=== PATIENT | female | born 1960 | race African-American/Black ===

== ENCOUNTER 2018-05-12 09:37 | Outpatient (CLI) | payer MEDICARE, MEDICAID | END 2018-05-12 09:38 | disposition home or self-care (01) | LOC: BICMAMMO 09:37 | PROVIDERS: ATTEND Nurse Practitioner Family | DX: Z12.31 Encounter for screening mammogram for malignant neoplasm of breast (principal); Z78.0 Asymptomatic menopausal state; M19.90 Unspecified osteoarthritis, unspecified site; E55.9 Vitamin D deficiency, unspecified | CPT/HCPCS: 77063; 77067; 77080 ==

== ENCOUNTER 2019-09-08 10:24 | Outpatient (CLI) | payer MEDICARE, MEDICAID ==
--- NOTE | 2019-09-08 11:21 | MMO ---
Bilateral MAMMO Bilat Screen [facility]. CLINICAL HISTORY: Patient is 58 years old and is seen for screening. The patient has no family history of breast cancer. The patient has no personal history of cancer. The patient has a history of right Excisional Biopsy - benign. VIEWS: The views performed were: bilateral craniocaudal with tomosynthesis and bilateral mediolateral oblique with tomosynthesis. FILMS COMPARED: The present examination has been compared to prior imaging studies performed at [facility] on 12/11/2011, 12/27/2015, 01/14/2017 and 05/12/2018. This study has been interpreted with the assistance of computer-aided detection. MAMMOGRAM FINDINGS: There are scattered fibroglandular densities. There are stable benign appearing calcifications seen in both breasts. There are no suspicious masses, calcifications or areas of architectural distortion. There are no suspicious masses, suspicious calcifications, or new areas of architectural distortion. IMPRESSION: THERE IS NO MAMMOGRAPHIC EVIDENCE OF MALIGNANCY. A ROUTINE FOLLOW-UP MAMMOGRAM IN 1 YEAR IS RECOMMENDED. THE RESULTS OF THIS EXAM WERE SENT TO THE PATIENT. ACR BI-RADS Category 2 - Benign finding MAMMOGRAPHY NOTE: 1. A negative mammogram report should not delay a biopsy if a dominant of clinically suspicious mass is present. 2. Approximately 10% to 15% of breast cancers are not detected by mammography. 3. Adenosis and dense breasts may obscure an underlying neoplasm. Reported by: BUFFY MEDINA MD Electonically Signed: [id number]
== END 2019-09-08 10:25 | disposition home or self-care (01) ==
LOC: BICMAMMO 10:24
PROVIDERS: ATTEND Nurse Practitioner Family
DX: Z12.31 Encounter for screening mammogram for malignant neoplasm of breast (principal); Z91.89 Other specified personal risk factors, not elsewhere classified
CPT/HCPCS: 77063; 77067

== ENCOUNTER 2019-11-16 10:31 | Outpatient (CLI) | payer MEDICARE, MEDICAID ==
--- NOTE | 2019-11-16 12:13 | MRI ---
MR the lumbar spine without contrast INDICATION: History of lumbar radiculopathy COMPARISON: None. TECHNIQUE: Multiplanar multisequence MR images were obtained of lumbar spine without IV contrast. FINDINGS: Bone marrow: Bone marrow signal intensity appears within normal limits. Distal spinal cord and conus: Normal. The conus seen to terminate at L1. Visualized retroperitoneum and paraspinal soft tissues: Partial visualization of the patient's known left superior pole renal cyst. The cyst measures up to 4.1 cm. Additional smaller exophytic cysts are seen off the lateral margin of the left kidney. No lymphadenopathy is evident. Vertebral levels: L5-S1: There is a mild broad-based disc bulge and mild facet joint degenerative change but no appreci able central canal or neural foraminal narrowing.. L4-5: There is a broad-based disc bulge with facet hypertrophy inducing mild central canal narrowing with mild left and moderate right subarticular lateral recess narrowing. The broad-based disc bulge and facet hypertrophy has for potential for impingement of the traversing right L5 nerve root. This i s best seen on image 28 of series 7 and image 13 of series 5. The broad-based disc bulge and facet hypertrophy is induces mild right neural foraminal narrowing. L3-4: There is a broad-based bulge with facet hypertrophy but no appreciable central canal or neural foraminal narrowing. L2-3: There is a broad-based bulge without appreciable central canal or neural foraminal narrowing. L1-L2: No appreciable central canal or neuroforaminal narrowing. T12-L1: No appreciable central canal or neuroforaminal narrowing. IMPRESSION: 1. Moderate spondylosis of the lumbar spine most pronounced at L4-5. There is a broad-based disc bulg e with facet hypertrophy inducing mild central canal narrowing with moderate right subarticular lateral recess narrowing. Within the right lateral recess the broad-based bulge and facet hypertrophy has potential for impingement of the traversing right L5 nerve root. Would recommend correlation with the clinical exam. 2. Left renal cysts better detailed on a CT urogram dated June 17, 2016.
== END 2019-11-16 10:32 | disposition home or self-care (01) ==
LOC: BICMRI 10:31
PROVIDERS: ATTEND Orthopaedic Surgery
DX: M47.26 Other spondylosis with radiculopathy, lumbar region (principal); M51.16 Intervertebral disc disorders with radiculopathy, lumbar region; M53.3 Sacrococcygeal disorders, not elsewhere classified; M48.061 Spinal stenosis, lumbar region without neurogenic claudication; N28.1 Cyst of kidney, acquired
CPT/HCPCS: 72148

== ENCOUNTER 2021-07-17 09:57 | Outpatient (CLI) | payer MEDICARE, MEDICAID | END 2021-07-17 09:58 | disposition home or self-care (01) | LOC: BICMAMMO 09:57 | PROVIDERS: ATTEND Nurse Practitioner Family | DX: Z12.31 Encounter for screening mammogram for malignant neoplasm of breast (principal); Z13.820 Encounter for screening for osteoporosis; M85.89 Other specified disorders of bone density and structure, multiple sites; N64.89 Other specified disorders of breast | CPT/HCPCS: 77063; 77067; 77080 ==

== ENCOUNTER 2021-07-31 08:46 | Outpatient (CLI) | payer MEDICARE, MEDICAID | END 2021-07-31 08:47 | disposition home or self-care (01) | LOC: BICULT 08:46 | PROVIDERS: ATTEND Nurse Practitioner Family | DX: R92.2 Inconclusive mammogram (principal) | CPT/HCPCS: 76642; 77065; G0279 ==

== ENCOUNTER 2022-03-09 14:07 | Emergency (ER) | payer MEDICARE, MEDICAID ==
[2022-03-09] MEDS ORDERED: Ketorolac Tromethamine 30 MG/ML VIAL ONE (16:00)
== END 2022-03-09 16:09 | disposition home or self-care (01) ==
LOC: ERS 14:07
DX: M79.652 Pain in left thigh (principal); K21.9 Gastro-esophageal reflux disease without esophagitis; I10 Essential (primary) hypertension; W19.XXXA Unspecified fall, initial encounter
CPT/HCPCS: 96372; J1885

== ENCOUNTER 2022-03-15 16:53 | Emergency (ER) | payer MEDICARE, MEDICAID ==
[2022-03-15] MEDS ORDERED: traMADol HCl 50 MG TAB ONE (18:10)
== END 2022-03-15 19:31 | disposition home or self-care (01) ==
LOC: ERS 16:53
DX: S70.02XA Contusion of left hip, initial encounter (principal); I10 Essential (primary) hypertension; K21.9 Gastro-esophageal reflux disease without esophagitis; W19.XXXA Unspecified fall, initial encounter
CPT/HCPCS: 72192

== ENCOUNTER 2024-05-05 11:27 | Outpatient (CLI) | payer OTHER, MEDICAID | END 2024-05-05 11:28 | disposition home or self-care (01) | LOC: BICMAMMO 11:27 | PROVIDERS: ATTEND Nurse Practitioner Family | DX: Z12.31 Encounter for screening mammogram for malignant neoplasm of breast (principal); N64.89 Other specified disorders of breast; Z91.89 Other specified personal risk factors, not elsewhere classified | CPT/HCPCS: 77063; 77067 ==

== ENCOUNTER 2024-05-16 08:12 | Outpatient (CLI) | payer OTHER, MEDICAID | END 2024-05-16 08:13 | disposition home or self-care (01) | LOC: BICMAMMO 08:12 | PROVIDERS: ATTEND Nurse Practitioner Family | DX: N64.89 Other specified disorders of breast (principal) | CPT/HCPCS: 76642; 77065; G0279 ==